=== PATIENT | male | born 1990 | race African-American/Black ===

== ENCOUNTER 2019-12-25 23:11 | Emergency (ER) | payer MEDICAID, OTHER ==
[2019-12-26 00:44] VITALS: BP 137/93
[2019-12-26] MEDS ORDERED: cefTRIAXone SOD 1,000 MG VL IM ONE (02:30)
[2019-12-26] MEDS ORDERED: HYDROcodone-ACET 10/325MG TAB PO ONE (02:30)
== END 2019-12-26 03:12 | disposition home or self-care (01) ==
LOC: ER 23:11
DX: S02.832A Fracture of medial orbital wall, left side, initial encounter for closed fracture (principal); Y04.2XXA Assault by strike against or bumped into by another person, initial encounter; Y93.89 Activity, other specified; Y92.89 Other specified places as the place of occurrence of the external cause; Y99.8 Other external cause status
CPT/HCPCS: 70486; 96372; 99284; J0696

== ENCOUNTER 2021-10-15 20:37 | Emergency (ER) | payer MEDICAID, OTHER ==
[~2021-10-15] VITALS: Ht 182.9 cm; Wt 90.7 kg
[2021-10-15 23:50] VITALS: BP 115/61
== END 2021-10-15 23:53 | disposition home or self-care (01) ==
LOC: ER 20:37
DX: S16.1XXA Strain of muscle, fascia and tendon at neck level, initial encounter (principal); Z88.0 Allergy status to penicillin; V49.49XA Driver injured in collision with other motor vehicles in traffic accident, initial encounter; Y93.89 Activity, other specified; Y92.410 Unspecified street and highway as the place of occurrence of the external cause; Y99.8 Other external cause status
CPT/HCPCS: 70450